=== PATIENT | female | born 1985 | race African-American/Black ===

== ENCOUNTER 2018-10-05 23:24 | Emergency (ER) | payer OTHER, MEDICAID ==
[~2018-10-05] VITALS: Ht 157.5 cm; Wt 104.3 kg
[2018-10-05 23:28] VITALS: BP_SYST 128
--- NOTE | 2018-10-05 23:30 | NUR ---
Patient to ER bed 5 to gown for evaluation. Side rails up.
--- NOTE | 2018-10-05 23:35 | NUR ---
Patient to ER via EMT ambulance for evaluation poss side effects from medication(shaking) Patient is awake, alert and oriented in no acute distress, vital sighs stable, respirations even and unlabored, skin warm and dry to touch. Patient up to bathroom and provided urine sample, which was sent to lab. Awaiting evaluation by ER MD, will continue to observe and assess. Staff member from facility at bedside.
[2018-10-05] MEDS ORDERED: LORA10TA7 PO (23:46)
[2018-10-05] MEDS ORDERED: GUAI-689 PO (23:46)
[2018-10-05] MEDS ORDERED: OXCA600T5 PO (23:46)
[2018-10-05] MEDS ORDERED: BENZ1TAB7 PO (23:46)
[2018-10-05] MEDS ORDERED: VITD2000 PO (23:46)
[2018-10-05] MEDS ORDERED: LOSA50TA3 PO (23:46)
[2018-10-05] MEDS ORDERED: MULT-1117 PO (23:46)
[2018-10-05] MEDS ORDERED: IBUP-1968 PO (23:46)
[2018-10-05] MEDS ORDERED: RISP3TAB5 PO (23:46)
[2018-10-05] MEDS ORDERED: FERR325T30 PO (23:46)
[2018-10-05] MEDS ORDERED: PRO20 PO (23:46)
[2018-10-05] MEDS ORDERED: LITH300C2 PO (23:46)
[2018-10-05] MEDS ORDERED: ACET-73 PO (23:46)
[2018-10-05] MEDS ORDERED: FLUT16SP16 NS (23:46)
--- NOTE | 2018-10-05 23:46 | NUR ---
Medication reconciliation completed with information provided by facility. Any prior medication reconciliation on file was reviewed and corrected.
--- NOTE | 2018-10-05 23:54 | NUR ---
ER at bedside examining patient.
--- NOTE | 2018-10-05 23:55 | NUR ---
Pt BIB [facility] C/O generalized shaking since am. Pt states "I'm not in any pain." while breathing heavily" and "dropping down" pt states having balance issues that make it difficult for her to change herself. She claims these are side effect to her medications. No other complaints nor injuries noted by pt or observed. Pt resting comfortable on gurney with rails up. V/S stable no s/s of acute distress
--- NOTE | 2018-10-06 00:15 | NUR ---
Boarding care facility personnel bedside. Pt secure, resting on gurney with rails up. No s/s of acute distress
[2018-10-06 00:27] LABS: BASOPHILS # (AUTO) 0.1 K/uL (0.0-0.2); BASOPHILS % (AUTO) 0.7 % (0.0-2.0); EOSINOPHILS # (AUTO) 0.2 K/uL (0.0-0.4); EOSINOPHILS % (AUTO) 2.8 % (0.0-4.0); HEMATOCRIT 37.4 % (36-48); HEMOGLOBIN 11.5 g/dL (12.0-16.0); LYMPHOCYTES # (AUTO) 1.5 K/uL (1.0-5.5); LYMPHOCYTES % (AUTO) 17.3 % (20.5-51.5); MEAN CORPUSCULAR HEMOGLOBIN 28 pg (27-31); MEAN CORPUSCULAR HGB CONC 31 % (32-36); MEAN CORPUSCULAR VOLUME 91 fL (79.0-98.0); MONOCYTES # (AUTO) 0.7 K/uL (0.0-1.0); MONOCYTES % (AUTO) 8.3 % (1.7-9.3); NEUTROPHILS % (AUTO) 70.9 % (40.0-70.0); PLATELET COUNT (AUTO) 443 K/uL (130-430); RED BLOOD CELL COUNT(AUTO) 4.09 MIL/uL (4.2-6.2); RED CELL DISTRIBUTION WIDTH 13.4 % (9.0-15.0); WHITE BLOOD COUNT (AUTO) 8.5 K/uL (4.8-10.8)
[2018-10-06 00:46] LABS: CALCIUM 9.2 mg/dL (8.4-11.0); CREATININE 0.82 mg/dL (0.55-1.30); POTASSIUM 4.4 mmol/L (3.5-5.1)
[2018-10-06 00:52] LABS: ALBUMIN 2.8 g/dL (3.4-4.8); TOTAL BILIRUBIN 0.2 mg/dL (0.0-1.0)
--- NOTE | 2018-10-06 01:25 | NUR ---
Pt ambulated across ER floor with minimal assistance from nursing staff. Dr. Temple aware
[2018-10-06] MEDS ORDERED: DIPHENHYDRAMINE HCL 25 MG CAPSULE PO ONE (01:30)
--- NOTE | 2018-10-06 01:55 | NUR ---
Patient given written and verbal discharge instructions and verbalizes understanding. ER MD discussed with patient the results and treatment provided. Patient in stable condition. ID arm band removed. Rx of benadryl given. Patient educated on pain management and to follow up with PMD. Pain Scale 0/10. Opportunity for questions provided and answered. Medication side effect fact sheet provided.
[2018-10-06 02:03] VITALS: BP_SYST 126
== END 2018-10-06 01:55 | disposition home or self-care (01) ==
LOC: SED 23:24
DX: R25.1 Tremor, unspecified (principal); Z79.899 Other long term (current) drug therapy
CPT/HCPCS: 36415; 80053; 81002; 81025; 85025; 99283; Q0163

== ENCOUNTER 2019-02-22 02:54 | Emergency (ER) | payer OTHER, MEDICAID ==
[~2019-02-22] VITALS: Ht 152.4 cm; Wt 120.7 kg
[~2019-02-22 02:54] MED LIST: ACET-73 PO; BENZ1TAB7 PO; FERR325T30 PO; FLUT16SP16 NS; GUAI-689 PO; IBUP-1968 PO; LITH300C2 PO; LORA10TA7 PO; LOSA50TA3 PO; MULT-1117 PO; OXCA600T5 PO; PRO20 PO; RISP3TAB5 PO; VITD2000 PO
[2019-02-22 03:10] VITALS: BP_SYST 141
[2019-02-22] MEDS ORDERED: ALPRAZolam 0.25 MG TABLET PO ONE (03:30)
[2019-02-22 04:20] VITALS: BP_SYST 133
== END 2019-02-22 04:20 | disposition home or self-care (01) ==
LOC: SED 02:54
DX: F41.9 Anxiety disorder, unspecified (principal); E11.9 Type 2 diabetes mellitus without complications; I10 Essential (primary) hypertension; F32.9 Major depressive disorder, single episode, unspecified; Z79.899 Other long term (current) drug therapy
CPT/HCPCS: 71045; 99283; 99284

== ENCOUNTER 2019-09-24 09:04 | Emergency (ER) | payer OTHER, MEDICAID ==
[~2019-09-24] VITALS: Ht 157.5 cm; Wt 112.0 kg
[~2019-09-24 09:04] MED LIST changes: -BENZ1TAB7 PO; +BENZ1TAB76 PO
[2019-09-24 09:10] VITALS: BP_SYST 160
--- NOTE | 2019-09-24 09:20 | NUR ---
Patient to ER bed 05 to gown for evaluation. Side rails up.
--- NOTE | 2019-09-24 09:25 | NUR ---
Patient brought in by ambulance to the ED d/t increased in behavioral problems per facility that started this morning. Denied any chest pain or shortness of breath. Denied any fevers, chills, nausea or vomiting. Patient is alert and oriented x2, respirations even and unlabored, speaking in full sentences and ambulating with a steady gait. VSS and pain level 0/10. Informed of approximate wait time. Instructed to notify ED staff JOSETTE for any changes in condition or worsening of symptoms. Patient verbalized understanding.
--- NOTE | 2019-09-24 09:30 | NUR ---
ER Dr. Higginbotham at bedside examining patient.
--- NOTE | 2019-09-24 09:35 | NUR ---
Patient ambulated to the bathroom with a steady gait. Urine specimen collected and dropped off at the lab as ordered by Dr. Higginbotham.
--- NOTE | 2019-09-24 09:48 | NUR ---
environmental services technician at bedside collecting blood specimen as ordered by Dr. Higginbotham. Patient tolerated the procedure well.
--- NOTE | 2019-09-24 10:09 | NUR ---
ECG done at bedside as ordered by Dr. Higginbotham. Patient tolerated the procedure well. Report given to .
[2019-09-24 10:13] LABS: BASOPHILS # (AUTO) 0.1 K/uL (0.0-0.2); BASOPHILS % (AUTO) 0.9 % (0.0-2.0); EOSINOPHILS # (AUTO) 0.1 K/uL (0.0-0.4); EOSINOPHILS % (AUTO) 1.2 % (0.0-4.0); HEMATOCRIT 37.4 % (36-48); HEMOGLOBIN 12.1 g/dL (12.0-16.0); LYMPHOCYTES # (AUTO) 1.3 K/uL (1.0-5.5); LYMPHOCYTES % (AUTO) 18.5 % (20.5-51.5); MEAN CORPUSCULAR HEMOGLOBIN 30 pg (27-31); MEAN CORPUSCULAR HGB CONC 33 % (32-36); MEAN CORPUSCULAR VOLUME 91 fL (79.0-98.0); MONOCYTES # (AUTO) 0.5 K/uL (0.0-1.0); MONOCYTES % (AUTO) 7.2 % (1.7-9.3); NEUTROPHILS # (AUTO) 5.2 K/uL (1.8-7.7); NEUTROPHILS % (AUTO) 72.2 % (40.0-70.0); PLATELET COUNT (AUTO) 422 K/uL (130-430); RED BLOOD CELL COUNT(AUTO) 4.12 MIL/uL (4.2-6.2); RED CELL DISTRIBUTION WIDTH 13.6 % (9.0-15.0); WHITE BLOOD COUNT (AUTO) 7.2 K/uL (4.8-10.8)
[2019-09-24 10:37] LABS: ANION GAP 3 (5-15); CHLORIDE 103 mmol/L (98-107); CREATININE 0.72 mg/dL (0.55-1.30); GLUCOSE 99 mg/dL (70-99); POTASSIUM 3.9 mmol/L (3.5-5.1); SODIUM SERUM 140 mmol/L (136-145); UREA NITROGEN, BLOOD 13 mg/dL (8-21)
--- NOTE | 2019-09-24 10:40 | NUR ---
Patient went to [place] and locked herself in the bathroom. Security and CN with her. aware.
[2019-09-24 10:41] LABS: BARBITURATE, URINE NEGATIVE (NEG <=200); BENZODIAZEPINE, URINE NEGATIVE (NEG <=150); CANNABINOID, URINE NEGATIVE (NEG <=50); COCAINE, URINE NEGATIVE (NEG <=150); METHAMPHETAMINES SCREEN,URINE NEGATIVE (NEG <=500); OPIATE, URINE NEGATIVE (NEG <=100); PHENCYCLIDINE SCREEN,URINE NEGATIVE (NEG <=25); UR TRICYCLIC ANTIDEPRESSANTS NEGATIVE (NEG <=300); URINE AMPHETAMINE NEGATIVE (NEG <=500); URINE METHADONE NEGATIVE (NEG <=200); URINE OXYCODONE SCREEN NEGATIVE (NEG <=100); URINE PROPOXYPHENE SCREEN NEGATIVE (NEG <=300)
[2019-09-24 10:42] LABS: ALANINE AMINOTRANSFERASE 23 U/L (12-78); ALBUMIN 3.3 g/dL (3.4-4.8); ASPARTATE AMINOTRANSFERASE 11 U/L (10-37); TOTAL BILIRUBIN 0.3 mg/dL (0.0-1.0)
[2019-09-24 10:48] LABS: ACETAMINOPHEN < 1 ug/mL (1-30); ALCOHOL, BLOOD < 3 mg/dL (<10); GFR AFRICAN AMERICAN 118 mL/min (>90)
--- NOTE | 2019-09-24 11:10 | NUR ---
Patient back from [place]. Still agitated.
--- NOTE | 2019-09-24 11:15 | NUR ---
Kate Antonio at bedside.
--- NOTE | 2019-09-24 11:45 | NUR ---
CALLED PET TEAM FOR EVALUATION OF PATIENT. SPOKE WITH ANIBAL.
--- NOTE | 2019-09-24 12:05 | NUR ---
PET called, ETA 45mins.
--- NOTE | 2019-09-24 12:11 | NUR ---
Patient is not in her room again. Security notified.
--- NOTE | 2019-09-24 12:44 | NUR ---
Per staff on [facility] patient left out rear door near ICU. Security called and walked out with her.
--- NOTE | 2019-09-24 12:55 | NUR ---
PET continuous improvement director arrived to ED. Staff from [facility] is here talking with PET team continuous improvement director. Odell Baker called to attempt to locate patient on grounds. Last known place was behind hospital at a table.
--- NOTE | 2019-09-24 13:15 | NUR ---
Patient was brought back in by [facility] security consultant and Police officers. PET pension agent with them.
--- NOTE | 2019-09-24 13:16 | NUR ---
Odell Baker found patient, in ambulance bay speaking with twist tester, Jim.
--- NOTE | 2019-09-24 13:29 | NUR ---
Patient is refusing to get out of the police cruiser. CN and PET esthetician makeup artist trying to talk to her.
--- NOTE | 2019-09-24 14:30 | NUR ---
Placed on 5150 hold.
[2019-09-24] MEDS ORDERED: DIPHENHYDRAMINE INJ 50 MG/ML VIAL IM ONE ×2 (14:45→20:30)
[2019-09-24] MEDS ORDERED: LORazepam 2 MG/ML VIAL IM ONE ×3 (14:45→22:00)
[2019-09-24] MEDS ORDERED: HALOPERIDOL LACTATE 5 MG/ML VIAL IM ONE ×3 (14:45→22:00)
[2019-09-24] MEDS ORDERED: LORazepam 2 MG/ML VIAL ONE ×2 (15:02→22:09)
[2019-09-24] MEDS ORDERED: DIPHENHYDRAMINE INJ 50 MG/ML VIAL ONE (15:02)
[2019-09-24] MEDS ORDERED: HALOPERIDOL LACTATE 5 MG/ML VIAL ONE ×2 (15:03→22:10)
--- NOTE | 2019-09-24 15:31 | NUR ---
4-pt restraints applied as ordered by Dr. Higginbotham. Security at bedside for monitoring.
--- NOTE | 2019-09-24 16:56 | NUR ---
Patient is sleeping comfortably in bed. Security outside the door.
--- NOTE | 2019-09-24 18:29 | NUR ---
Patient is sleeping comfortably in bed. 4-pt restraints on. Offered to go to the bathroom. Skin check done on all extremities. No apparent distress at this time.
--- NOTE | 2019-09-24 19:20 | NUR ---
Report given and care transferred to MARNI Mike.
--- NOTE | 2019-09-24 20:00 | NUR ---
Pt managed to remove all of her restraints, she states "I dont need this shit, I ain't done nothing wrong".
--- NOTE | 2019-09-24 21:50 | NUR ---
Pt left her room and entered the nursing station demanding food. When offered food, pt became belligerent and screaming obscenities and threats at staff. Pt then walked to the exit and opened the door. Security staff stood in doorway to prevent patient from leaving. Pt is on 5150 hold for DTS/DTO, and is unable to contract for her own safety or care. Pt then coaxed back to her room and began screaming physical threats and obscenities at staff. Pt then charged montse and myself, strinking us both multiple times while flailing her arms wildly. Pt then lifted/assisted via 4 point assist into her hospital bed. Pt placed in 4 point restraints and medicated for safety by MARNI Fitzgerald.
--- NOTE | 2019-09-24 22:00 | NUR ---
Pt resting in ED bed, no distress at this time. Pt Vitals stable
--- NOTE | 2019-09-25 | NUR ---
Pt resting in ED bed comfortably. Restraints adjusted and removed for circulation checks. Pt denies pain at this time. Pt offered water, pt refused care and further assesment with cursewords and verbal insults.
--- NOTE | 2019-09-25 01:11 | NUR ---
Pt Offered juice and water, pt refused both
--- NOTE | 2019-09-25 02:00 | NUR ---
Pt resting in ED bed comfortably. Restraints adjusted and removed for circulation checks. Pt denies pain at this time. Pt offered water, pt refused care and further assesment.
--- NOTE | 2019-09-25 04:15 | NUR ---
Pt began screaming at staff, Stated "Ya'll Dumb motherfuckers, you better not let me catch you slipping" when asked if she would like some additional warm blankets.
--- NOTE | 2019-09-25 05:00 | NUR ---
Pt offered water, and circulation checks performed. pt refused further assesment and water stating "Get the fuck out my room, bitch"
--- NOTE | 2019-09-25 06:04 | NUR ---
Pt resting in ED bed comfortably. No acute distress noted at this time. Circulation check performed, wnl.
--- NOTE | 2019-09-25 06:55 | NUR ---
Pt resting in ed bed. Circulation checks performed , all vs wnl
--- NOTE | 2019-09-25 07:45 | NUR ---
pt is currently on BUE and BLE soft restraints. Pt currently sleeping
--- NOTE | 2019-09-25 07:47 | NUR ---
Report recieved from Rashid GRIDER. Pt is currently on a 5150 hold. Currently waiting for placement.
--- NOTE | 2019-09-25 07:51 | NUR ---
Report Given To Paul Vargas. All care assumed
--- NOTE | 2019-09-25 08:00 | NUR ---
pt is currently sleeping in bed.
--- NOTE | 2019-09-25 08:15 | NUR ---
pt is sleeping in bed.
--- NOTE | 2019-09-25 08:30 | NUR ---
pt provided w/ a warm blanket pr her request
--- NOTE | 2019-09-25 08:40 | NUR ---
pt has been accepted to [facility]. Pt will be going Intake department. Accepting physican is Dr. Gonzalez. Pt will be given a bed in unit 1.
--- NOTE | 2019-09-25 08:45 | NUR ---
pt is eating breakfast. Safety tray provided
--- NOTE | 2019-09-25 09:00 | NUR ---
pt is eating breakfast
--- NOTE | 2019-09-25 09:15 | NUR ---
pt is wake and resting in bed
--- NOTE | 2019-09-25 09:24 | NUR ---
Called Naresh Colon to given report. Pt will be going to the intake department and will be assigned a bed in unit one.
--- NOTE | 2019-09-25 09:30 | NUR ---
pt is awake and resting in bed.
--- NOTE | 2019-09-25 09:36 | NUR ---
Patient to be transferred to [facility]. Is being transferred due to higher level of care. Receiving facility has accepting physician and available space. ER physician has signed transfer form. Patient or responsible constitution party has agreed to transfer and signed form. Patient belongings inventoried and will be sent with patient. Copy of nursing notes, lab reports, EKG, Physicians Orders and X-rays to be sent with patient. Report called to January at receiving facility. Receiving physician is Vance. [facility] has been called for transfer. pt is in stable condition
[2019-09-25 09:45] VITALS: BP_SYST 106
--- NOTE | 2019-09-25 09:45 | NUR ---
pt transported to [facility]. Pt in stable condition
== END 2019-09-25 09:45 ==
LOC: SED 09:04
DX: R45.6 Violent behavior (principal); F32.9 Major depressive disorder, single episode, unspecified; F41.9 Anxiety disorder, unspecified; F20.9 Schizophrenia, unspecified; I10 Essential (primary) hypertension; E11.9 Type 2 diabetes mellitus without complications; Z79.899 Other long term (current) drug therapy
CPT/HCPCS: 36415; 80053; 80307; 85025; 93005; 96372; 99285; G0480; G0481; G0482; J1200; J1630; J2060